=== PATIENT | male | born 1940 | race Caucasian/White ===

== ENCOUNTER 2017-09-20 06:30 | Day surgery (SDC) | payer MEDICARE, OTHER ==
[~2017-09-20] VITALS: Ht 193 cm; Wt 116.4 kg
[~2017-09-20 06:30] MED LIST: ASPI-1182 PO; ATOR40TA28 PO; CINSULIN PO; FISH1CAP27 PO; FOSI20 PO; HYDR25TA PO; MULT1CAP32 PO; UBID100C24 PO; VERA120 PO; VITAD1000 PO
[2017-09-20] MEDS ORDERED: HYALURONATE SODIUM 12 MG/ML 0.8 ML SYRINGE IO ONE (06:31)
[2017-09-20] MEDS ORDERED: HYALURONATE SOD/CHONDROITIN SOD 0.5 ML VIAL IO ONE (06:31)
[2017-09-20] MEDS ORDERED: EPINEPHrine 1:1,000 [1 MG/ML] AMP IM ONE (06:31)
[2017-09-20] MEDS ORDERED: FentaNYL CITRATE-PF 100 MCG/2 ML VIAL IVP ONE (06:31)
[2017-09-20] MEDS ORDERED: MIDAZOLAM HCL 2 MG/2 ML VIAL IVP ONE (06:31)
[2017-09-20] MEDS ORDERED: DICLOFENAC SODIUM 0.1% 2.5 ML OPHTHALMIC SOLUTION ONE (06:32)
[2017-09-20] MEDS ORDERED: CYCLOPENTOLATE HCL 2% 2 ML OPHTHALMIC SOLUTION ONE (06:32)
[2017-09-20] MEDS ORDERED: TETRACAINE HCL/PF 0.5% 4 ML OPHTHALMIC SOLUTION ONE (06:33)
[2017-09-20] MEDS ORDERED: RINGERS SOLUTION,LACTATED 500 ML IV ONE ×2 (06:33→07:00)
[2017-09-20] MEDS ORDERED: PHENYLEPHRINE HCL 2.5% 2 ML OPHTHALMIC SOLUTION ONE (06:33)
[2017-09-20] MEDS ORDERED: MOXIFLOXACIN HCL 0.5% 3 ML OPHTHALMIC SOLUTION ONE (06:33)
[2017-09-20] MEDS: CYCLOPENTOLATE HCL 2% 2 ML OPHTHALMIC SOLUTION OS SCH ×3 (07:16→07:27)
[2017-09-20] MEDS: PHENYLEPHRINE HCL 2.5% 2 ML OPHTHALMIC SOLUTION OS SCH ×3 (07:16→07:27)
[2017-09-20] MEDS: DICLOFENAC SODIUM 0.1% 2.5 ML OPHTHALMIC SOLUTION OS SCH ×3 (07:16→07:38)
[2017-09-20] MEDS: MOXIFLOXACIN HCL 0.5% 3 ML OPHTHALMIC SOLUTION OS SCH ×3 (07:16→07:38)
[2017-09-20] MEDS ORDERED: ACETAMINOPHEN/CODEINE 300-30 MG TABLET PO PRN (07:45)
[2017-09-20] MEDS ORDERED: TETRACAINE HCL/PF 0.5% 4 ML OPHTHALMIC SOLUTION OS ONE (07:45)
[2017-09-20] MEDS ORDERED: AcetaZOLAMIDE 250 MG TABLET ONE (09:33)
[2017-09-20] MEDS ORDERED: AcetaZOLAMIDE 250 MG TABLET PO ONE (09:45)
== END 2017-09-20 10:20 | disposition home or self-care (01) ==
LOC: SURGERY 06:30
PROVIDERS: ATTEND Ophthalmology
DX: H25.12 Age-related nuclear cataract, left eye (principal); I11.9 Hypertensive heart disease without heart failure; G89.29 Other chronic pain; E78.00 Pure hypercholesterolemia, unspecified; Z95.0 Presence of cardiac pacemaker; Z98.890 Other specified postprocedural states; Z72.89 Other problems related to lifestyle; Z88.8 Allergy status to other drugs, medicaments and biological substances; Z68.31 Body mass index [BMI] 31.0-31.9, adult; Z79.82 Long term (current) use of aspirin; Z79.899 Other long term (current) drug therapy
CPT/HCPCS: 66984; 93005; C1780; J0171; J2250; J3010; J3490; J7120